=== PATIENT | female | born 1935 | race Caucasian/White ===

== ENCOUNTER 2023-06-19 23:48 | Emergency (ER) | payer MEDICARE, OTHER, SELFPAY ==
[2023-06-19 23:49] VITALS: BP 170/88; PULSE 88; RESP 20; TEMP 37; O2SAT 99; BMI 23.7
--- NOTE | 2023-06-19 23:57 | CT_ITS ---
The [address] [address] Patient Name: TRISTEN RAYMUNDO MRN: [id number] date: 1935 Sex: F Assigned Patient Location: ER Current Patient Location: ER Accession/Order Number: [id number] Exam Date: 06/19/2023 23:59 Report Date: 06/20/2023 00:48 At the request of: KENNETH BRAND Procedure: CT cervical spine wo con INDICATION: 87 years old; Female. Slid out of lift chair and struck forehead. Hematoma and abrasion. Closed head trauma. Fall. TECHNIQUE: CT Head (ax/cor/sag reformats). Ionizing radiation dose reduced via iterative reconstruction/FBP blend and body size kV/mA adjustment. Comparison: None FINDINGS: POSTOPERATIVE CHANGES: None. BRAIN PARENCHYMA: No focal lesions. No mass effect. No midline shift or herniation. No intraparenchymal or extra-axial hemorrhage. Patchy low-density in the white matter without mass effect consistent with small vessel ischemic change. VENTRICLES/EXTRA-AXIAL SPACES: Enlarged, consistent with atrophy. SINUSES/MASTOIDS: The visualized sinuses are clear although the maxillary sinuses are not entirely visible in this routine CT of the head. Ina bullosa bilaterally. Mastoids and middle ears are clear. MSK: No displaced or depressed calvarial fracture. Extracranial, frontal soft tissue swelling and subcutaneous hemorrhage. Punctate radiopaque foreign body is also noted, image 14/series 3. OTHER: No hyperdense intraluminal thrombus is present. Vascular calcifications are seen in the anterior and posterior circulation. TECHNIQUE: CT imaging of the cervical spine was performed. IV contrast: None. Dose reduction techniques were achieved by using automated exposure control and/or adjustment of mA and/or kV according to patient size and/or use of iterative reconstruction technique. COMPARISON: None available. FINDINGS: POSTOPERATIVE CHANGES: None. ALIGNMENT: Nonspecific straightening of the normal cervical curve. Grade 1 degenerative spondylolisthesis at C3-C4. C3 is positioned 1.5 mm anterior to C4. COMPRESSION FRACTURES: Generalized bony demineralization. No fracture or vertebral body collapse. No bone destruction. No asymmetric widening of the facets is present. Incidental note is made of fusion of the facets bilaterally at the C3-C4 level. PREVERTEBRAL SOFT TISSUES: Normal. CRANIOCERVICAL JUNCTION: There is a normal relationship of the occipital condyles, lateral masses of C1, and articular surfaces of C2. The base of the dens and body of C2 are intact. There is severe degenerative change with [id number] appearance, sclerosis, and cystic changes in the endplates at the level of the left atlantoaxial joint. There is normal predental space. Calcification and thickening of the transverse ligament is noted. Calcifications are also seen along the undersurface of the anterior arch of C1. POSTERIOR FOSSA: Cerebellar tonsils are above the foramen magnum. There is calcification the V4 segments of both vertebral arteries. Disc levels: C2-C3: Facet degeneration worse on the left than the right. Central canal patent. Neural foramina patent. C3-C4: Facet fusion bilaterally with additional bony overgrowth. Grade 1 degenerative spondylolisthesis. Central canal patent. Mild left foraminal stenosis. C4-C5: Facet degeneration. No focal disc herniation or bulging. Central canal patent. Neural foramina patent. C5-C6: Facet degeneration. No focal disc herniation or bulging. Central canal patent. Neural foramina patent. C6-C7: Vertebral endplate degeneration with disc space narrowing and cystic changes. Bulky bridging anterior osteophytes. Central canal patent. Neural foramina patent. C7-T1: No disc herniation. No spinal canal or foraminal narrowing. UPPER THORACIC SPINE: Not included in this examination. OTHER: No thyroid nodule or adenopathy. Vascular calcifications. CT/CT cervical spine wo con IMPRESSION: 1. No acute intracranial abnormality. No hemorrhage or mass effect. 2. Small vessel ischemic changes. 3. Atrophy. 4. Vascular calcifications. 5. Extracranial soft tissue swelling and subcutaneous hemorrhage in the left frontal region. There is a focal radiopaque foreign body also present in this region. 6. Multilevel cervical spondylosis. No acute fracture. Electronically authenticated by: AUGUSTO GIRALDO Date: 06/20/2023 00:48
--- NOTE | 2023-06-19 23:57 | CT_ITS ---
The [address] [address] Patient Name: TRISTEN RAYMUNDO MRN: [id number] date: 1935 Sex: F Assigned Patient Location: ER Current Patient Location: ER Accession/Order Number: [id number] Exam Date: 06/19/2023 23:59 Report Date: 06/20/2023 00:48 At the request of: KENNETH BARND Procedure: CT head/brain wo con INDICATION: 87 years old; Female. Slid out of lift chair and struck forehead. Hematoma and abrasion. Closed head trauma. Fall. TECHNIQUE: CT Head (ax/cor/sag reformats). Ionizing radiation dose reduced via iterative reconstruction/FBP blend and body size kV/mA adjustment. Comparison: None FINDINGS: POSTOPERATIVE CHANGES: None. BRAIN PARENCHYMA: No focal lesions. No mass effect. No midline shift or herniation. No intraparenchymal or extra-axial hemorrhage. Patchy low-density in the white matter without mass effect consistent with small vessel ischemic change. VENTRICLES/EXTRA-AXIAL SPACES: Enlarged, consistent with atrophy. SINUSES/MASTOIDS: The visualized sinuses are clear although the maxillary sinuses are not entirely visible in this routine CT of the head. Ina bullosa bilaterally. Mastoids and middle ears are clear. MSK: No displaced or depressed calvarial fracture. Extracranial, frontal soft tissue swelling and subcutaneous hemorrhage. Punctate radiopaque foreign body is also noted, image 14/series 3. OTHER: No hyperdense intraluminal thrombus is present. Vascular calcifications are seen in the anterior and posterior circulation. TECHNIQUE: CT imaging of the cervical spine was performed. IV contrast: None. Dose reduction techniques were achieved by using automated exposure control and/or adjustment of mA and/or kV according to patient size and/or use of iterative reconstruction technique. COMPARISON: None available. FINDINGS: POSTOPERATIVE CHANGES: None. ALIGNMENT: Nonspecific straightening of the normal cervical curve. Grade 1 degenerative spondylolisthesis at C3-C4. C3 is positioned 1.5 mm anterior to C4. COMPRESSION FRACTURES: Generalized bony demineralization. No fracture or vertebral body collapse. No bone destruction. No asymmetric widening of the facets is present. Incidental note is made of fusion of the facets bilaterally at the C3-C4 level. PREVERTEBRAL SOFT TISSUES: Normal. CRANIOCERVICAL JUNCTION: There is a normal relationship of the occipital condyles, lateral masses of C1, and articular surfaces of C2. The base of the dens and body of C2 are intact. There is severe degenerative change with [id number] appearance, sclerosis, and cystic changes in the endplates at the level of the left atlantoaxial joint. There is normal predental space. Calcification and thickening of the transverse ligament is noted. Calcifications are also seen along the undersurface of the anterior arch of C1. POSTERIOR FOSSA: Cerebellar tonsils are above the foramen magnum. There is calcification the V4 segments of both vertebral arteries. Disc levels: C2-C3: Facet degeneration worse on the left than the right. Central canal patent. Neural foramina patent. C3-C4: Facet fusion bilaterally with additional bony overgrowth. Grade 1 degenerative spondylolisthesis. Central canal patent. Mild left foraminal stenosis. C4-C5: Facet degeneration. No focal disc herniation or bulging. Central canal patent. Neural foramina patent. C5-C6: Facet degeneration. No focal disc herniation or bulging. Central canal patent. Neural foramina patent. C6-C7: Vertebral endplate degeneration with disc space narrowing and cystic changes. Bulky bridging anterior osteophytes. Central canal patent. Neural foramina patent. C7-T1: No disc herniation. No spinal canal or foraminal narrowing. UPPER THORACIC SPINE: Not included in this examination. OTHER: No thyroid nodule or adenopathy. Vascular calcifications. CT/CT head/brain wo con IMPRESSION: 1. No acute intracranial abnormality. No hemorrhage or mass effect. 2. Small vessel ischemic changes. 3. Atrophy. 4. Vascular calcifications. 5. Extracranial soft tissue swelling and subcutaneous hemorrhage in the left frontal region. There is a focal radiopaque foreign body also present in this region. 6. Multilevel cervical spondylosis. No acute fracture. Electronically authenticated by: AUGUSTO GIRALDO Date: 06/20/2023 00:48
--- NOTE | 2023-06-19 23:58 | ED.FALL1 ---
HPI - Fall General Chief Complaint: Fall Stated Complaint: HEAD INJURY Time Seen by Provider: 06/19/23 23:52 Source: other Source comment: [place] Mode of arrival: ambulance Limitations: no limitations History of Present Illness HPI Narrative: patient resides at [facility]. slid out of her chair striking her forehead. No LOC but has hematoma on her forehead. Denies neck pain or headache. Denies numbness or extremity weakness. Denies back pain or hip pain. Related Data Home Medications Medication Instructions Recorded Confirmed acetaminophen 325 mg capsule 325 mg PO Q6H PRN fever or pain 06/19/23 06/19/23 coenzyme Q10 100 mg chewable 100 mg PO DAILY 06/19/23 06/19/23 tablet (Chew Q) metoprolol tartrate 50 mg tablet 12.5 mg PO BID 06/19/23 06/19/23 (Lopressor) nitroglycerin 0.4 mg sublingual 0.4 mg sublingual Q5M PRN chest 06/19/23 06/20/23 tablet pain tuberculin PPD 5 tub. unit/0.1 mL intradermal 06/19/23 intradermal injection solution (Aplisol) atorvastatin 20 mg tablet 20 mg PO DAILY 06/20/23 06/20/23 calcium carbonate 600 mg calcium 600 mg PO DAILY 06/20/23 06/20/23 (1,500 mg) tablet cholecalciferol (vitamin D3) 50 50 mcg PO DAILY 06/20/23 06/20/23 mcg (2,000 unit) tablet (D3 DOTS) clopidogrel 75 mg tablet 75 mg PO DAILY 06/20/23 06/20/23 denosumab 60 mg/mL subcutaneous mg subcut .monthly 06/20/23 syringe (Prolia) diclofenac sodium 1 % topical gel 2 g topical QID 06/20/23 06/20/23 (Voltaren Arthritis Pain) loperamide 2 mg capsule (Imodium 2 mg PO Q6H PRN loose stool 06/20/23 06/20/23 A-D) losartan 50 mg tablet (Cozaar) 50 mg PO QDAY 06/20/23 06/20/23 polyethylene glycol 3350 17 17 g PO DAILY 06/20/23 06/20/23 gram/dose oral powder (ClearLax) sertraline 25 mg tablet 25 mg PO QDAY 06/20/23 06/20/23 trazodone 100 mg tablet 100 mg PO DAILY 06/20/23 06/20/23 Allergies Allergy/AdvReac Type Severity Reaction Status Date / Time No Known Drug Allergies Allergy Verified 06/19/23 23:57 Review of Systems ROS Status of ROS 10 or more systems reviewed and unremarkable except as noted in history and below [facility] Social History Smoking status: Never smoker Exam Constitutional Vital Signs, click to edit/add: Last Vital Signs Temp 98.6 F 06/19/23 23:49 Pulse 74 06/20/23 00:35 Resp 20 06/19/23 23:49 BP 154/93 H 06/20/23 00:35 Pulse Ox 98 06/20/23 00:35 O2 Del Method Room Air 06/19/23 23:49 Common normals: no apparent distress, average body habitus, oriented x3, no limitations, healthy appearing, alert and well nourished [facility] Other: forehead hematoma Eye Common normals: EOMs intact bilaterally and conjunctivae normal Respiratory Common normals: normal respiratory effort, no retractions, no use of accessory muscles and clear to auscultation bilaterally Cardio Common normals: regular rate, regular rhythm, S1 normal heart sound and S2 normal heart sound GI Common normals: Normal to inspection, nondistended, normoactive bowel sounds present, soft to palpation and non-tender Back & Pelvis Common normals: no CVA tenderness and thoracic and lumbar spine normal to inspection Extremity Common normals: normal to inspection and full ROM Neuro Common normals: oriented x3, CN's II-XII intact bilaterally, moves all extremities and no focal motor deficits Psych Appearance: grossly normal Course Vital Signs Vital signs: Vital Signs Temperature 98.6 F 06/19/23 23:49 Pulse Rate 88 06/19/23 23:49 Respiratory Rate 20 06/19/23 23:49 Blood Pressure 170/88 H 06/19/23 23:49 Pulse Oximetry 99 06/19/23 23:49 Oxygen Delivery Method Room Air 06/19/23 23:49 Temperature 98.6 F 06/19/23 23:49 Pulse Rate 74 06/20/23 00:35 Respiratory Rate 20 06/19/23 23:49 Blood Pressure 154/93 H 06/20/23 00:35 Pulse Oximetry 98 06/20/23 00:35 Oxygen Delivery Method Room Air 06/19/23 23:49 MDM - Fall MDM Narrative Medical decision making narrative: patient presents from [facility] after a fall and sustained forehead hematoma. She is on Plavix. No LOC. Exam unremarkable except for hematoma. CT brain and C-spine without acute findings. patient discharged back to the home Imaging Data CT scan - head: Radiologist's impression: ITS Impressions Cervical Spine CT 06/19/23 23:57 IMPRESSION: 1. No acute intracranial abnormality. No hemorrhage or mass effect. 2. Small vessel ischemic changes. 3. Atrophy. 4. Vascular calcifications. 5. Extracranial soft tissue swelling and subcutaneous hemorrhage in the left frontal region. There is a focal radiopaque foreign body also present in this region. 6. Multilevel cervical spondylosis. No acute fracture. Electronically authenticated by: AUGUSTO GIRALDO Date: 06/20/2023 00:[address] 06/19/23 23:57 IMPRESSION: 1. No acute intracranial abnormality. No hemorrhage or mass effect. 2. Small vessel ischemic changes. 3. Atrophy. 4. Vascular calcifications. 5. Extracranial soft tissue swelling and subcutaneous hemorrhage in the left frontal region. There is a focal radiopaque foreign body also present in this region. 6. Multilevel cervical spondylosis. No acute fracture. Electronically authenticated by: AUGUSTO GIRALDO Date: 06/20/2023 00:48 Discharge Plan Discharge Chief Complaint: Fall Clinical Impression: Minor head injury Patient Disposition: Home, Self-Care Prescriptions / Home Meds: No Action acetaminophen 325 mg capsule 325 mg PO Q6H PRN (Reason: fever or pain) Aplisol 5 tub. unit /0.1 mL solution intradermal Chew Q 100 mg tablet,chewable 100 mg PO DAILY metoprolol tartrate [Lopressor] 50 mg tablet 12.5 mg PO BID nitroglycerin 0.4 mg tablet, sublingual 0.4 mg sublingual Q5M PRN (Reason: chest pain) Rx Instructions: do not exceed 3 doses per episode sertraline 25 mg tablet 25 mg PO QDAY cholecalciferol (vitamin D3) [D3 DOTS] 50 mcg (2,000 unit) tablet 50 mcg PO DAILY calcium carbonate 600 mg calcium (1,500 mg) tablet 600 mg PO DAILY loperamide [Imodium A-D] 2 mg capsule 2 mg PO Q6H PRN (Reason: loose stool) trazodone 100 mg tablet 100 mg PO DAILY polyethylene glycol 3350 [ClearLax] 17 gram/dose powder 17 g PO DAILY Prolia 60 mg/mL syringe subcut .monthly atorvastatin 20 mg tablet 20 mg PO DAILY losartan [Cozaar] 50 mg tablet 50 mg PO QDAY clopidogrel 75 mg tablet 75 mg PO DAILY diclofenac sodium [Voltaren Arthritis Pain] 1 % gel 2 g topical QID Rx Instructions: apply to single elbow, wrist or hand; for hand includes palm/fingers/back of hand Instructions: Head Injury (ED) Stand Alone Forms: Portal Instructions Referrals: STEPHANIE PATEL DO [Primary Care Provider] - 1 week
[2023-06-20 00:35] VITALS: BP 154/93; PULSE 74; O2SAT 98
== END 2023-06-20 02:52 | disposition home or self-care (01) ==
PROVIDERS: Emergency Provider Internal Medicine; PCP Family Medicine
DX: S00.93XA Contusion of unspecified part of head, initial encounter (principal); W07.XXXA Fall from chair, initial encounter; Z79.02 Long term (current) use of antithrombotics/antiplatelets; M47.812 Spondylosis without myelopathy or radiculopathy, cervical region
CPT/HCPCS: 70450; 72125; 99284